=== PATIENT | male | born 1960 | race Caucasian/White ===

== ENCOUNTER 2024-03-01 15:54 | Inpatient (IN) | payer MEDICARE ==
[~2024-03-01] VITALS: Ht 185.4 cm; Wt 115.2 kg
[2024-03-01 18:40] VITALS: BP 140/90; PULSE 75; RESP 19; TEMP 97.9; O2SAT 96
[2024-03-01] MEDS ORDERED: DEXTROSE 50%-WATER 25 GM/50 ML SYRINGE IVP PRN (19:00)
[2024-03-01] MEDS ORDERED: LACTULOSE 20 GM/30 ML SOLUTION UDCUP PO PRN (19:00)
[2024-03-01] MEDS ORDERED: ACETAMINOPHEN 325 MG TABLET PO PRN (19:00)
[2024-03-01] MEDS: SENNOSIDES 8.6 MG TABLET PO SCH (21:00)
[2024-03-01 21:30] VITALS: BP 127/92; PULSE 74; RESP 18; TEMP 97.5; O2SAT 94
[2024-03-01] MEDS: ATORVASTATIN CALCIUM 10 MG TABLET PO SCH (21:40)
[2024-03-01] MEDS: 0.9% SODIUM CHLORIDE 10 ML SYRINGE IVP SCH (21:40)
[2024-03-01] MEDS: APIXABAN 2.5 MG TABLET PO SCH (21:40)
[2024-03-01] MEDS: INSULIN GLARGINE,HUM.REC.ANLOG 100 UNITS/ML SQ SCH (21:44)
[2024-03-01] MEDS: INSULIN LISPRO 100 UNITS/ML SQ PRN (21:45)
[2024-03-01] MEDS: MELATONIN 5 MG TABLET PO PRN (21:48)
[2024-03-01] MEDS: OxyCODONE HCL 5 MG IR TABLET PO PRN (21:48)
[2024-03-01] MEDS: AMPICILLIN SODIUM/SULBACTAM NA 3 GM in SODIUM CHLORIDE 0.9% 100 ML IV SCH (23:57)
[2024-03-02 02:26] LABS: GLUCOMETER DEV NAME(LOC) 2WR.2B; GLUCOSE,POINT OF CARE 146 MG/DL (70-110)
[2024-03-02 06:55] LABS: GLUCOMETER DEV NAME(LOC) 2WR.1D; GLUCOSE,POINT OF CARE 170 MG/DL (70-110)
[2024-03-02 07:50] VITALS: BP 132/76; PULSE 73; RESP 19; TEMP 98.2; O2SAT 95
[2024-03-02] MEDS: METOPROLOL SUCCINATE 25 MG ER TABLET PO SCH (08:07)
[2024-03-02] MEDS: ASPIRIN 81 MG CHEWABLE TABLET PO SCH (08:08)
[2024-03-02 08:10] LABS: BASOPHILS % (AUTO) 1.3 % (0.0-2.0); EOSINOPHILS % (AUTO) 5.1 % (1.0-6.0); HEMATOCRIT 33.6 % (41-53); HEMOGLOBIN 11.3 g/dL (13.5-17.5); LYMPHOCYTES # (AUTO) 1.4 K/uL (1.0-4.8); LYMPHOCYTES % (AUTO) 32.8 % (22.0-44.0); MEAN CORPUSCULAR HEMOGLOBIN 33.8 pg (26.0-34.0); MEAN CORPUSCULAR HGB CONC 33.6 G/dL (31.0-37.0); MEAN CORPUSCULAR VOLUME 101 fL (80-100); MONOCYTES # (AUTO) 0.4 K/uL (0.1-1.0); MONOCYTES % (AUTO) 8.7 % (2.0-9.0); NEUTROPHILS # (AUTO) 2.3 K/uL (1.8-7.7); NEUTROPHILS % (AUTO) 52.1 % (40.0-70.0); PLATELET COUNT (AUTO) 180 K/uL (150-450); RED BLOOD CELL COUNT(AUTO) 3.34 MIL/uL (4.50-5.90); RED CELL DISTRIBUTION WIDTH 13.6 % (11.5-14.5); WHITE BLOOD COUNT (AUTO) 4.3 K/uL (4.5-11.0)
[2024-03-02] MEDS: POLYETHYLENE GLYCOL 3350 17 GM PACKET PO SCH (08:10)
[2024-03-02 08:21] LABS: ALBUMIN 2.8 g/dL (3.4-5.0); BILIRUBIN,TOTAL 0.3 mg/dL (0.1-1.0); CALCIUM, TOTAL 9.1 mg/dL (8.8-10.5); CREATININE 1.71 mg/dL (0.60-1.30); POTASSIUM 4.4 mmol/L (3.5-5.1); TOTAL PROTEIN, SERUM 6.9 g/dL (6.4-8.2)
[2024-03-02 08:46] VITALS: O2SAT 95
[2024-03-02 12:05] LABS: GLUCOMETER DEV NAME(LOC) 2WR.1D; GLUCOSE,POINT OF CARE 217 MG/DL (70-110)
[2024-03-02 19:06] LABS: GLUCOMETER DEV NAME(LOC) 2WR.2B; GLUCOSE,POINT OF CARE 187 MG/DL (70-110)
[2024-03-02 19:45] VITALS: BP 127/59; PULSE 73; RESP 18; TEMP 98.3; O2SAT 95
[2024-03-02 20:00] VITALS: O2SAT 95
[2024-03-02] MEDS: CHLORHEXIDINE GLUCONATE 4% 118 ML TOPICAL LIQUID TP SCH (21:03)
[2024-03-02] MEDS: ATORVASTATIN CALCIUM 20 MG TABLET PO SCH (21:04)
[2024-03-02] MEDS: ETHYL ALCOHOL 62% ANTISEPTIC NASAL SANITIZER 0.6 ML AMPUL NASAL SCH (21:22)
[2024-03-02 21:36] LABS: GLUCOMETER DEV NAME(LOC) 2WR.2B; GLUCOSE,POINT OF CARE 175 MG/DL (70-110)
[2024-03-03 07:05] LABS: GLUCOMETER DEV NAME(LOC) 2WR.1D; GLUCOSE,POINT OF CARE 152 MG/DL (70-110)
[2024-03-03 08:05] VITALS: BP 100/62; PULSE 74; RESP 18; TEMP 98.2; O2SAT 98
[2024-03-03] MEDS: PANTOPRAZOLE SODIUM 40 MG DR TABLET PO SCH (08:21)
[2024-03-03 12:15] LABS: GLUCOMETER DEV NAME(LOC) 2WR.1D; GLUCOSE,POINT OF CARE 181 MG/DL (70-110)
[2024-03-03 15:30] VITALS: BP 124/64; PULSE 78; RESP 18; TEMP 98.4; O2SAT 98
[2024-03-03 17:41] LABS: GLUCOMETER DEV NAME(LOC) 2WR.2B; GLUCOSE,POINT OF CARE 147 MG/DL (70-110)
[2024-03-03 20:32] VITALS: BP 137/88; PULSE 76; RESP 18; TEMP 97.7; O2SAT 95
[2024-03-03 20:46] LABS: GLUCOMETER DEV NAME(LOC) 2WR.1D; GLUCOSE,POINT OF CARE 197 MG/DL (70-110)
[2024-03-03 22:05] VITALS: O2SAT 95
[2024-03-04 08:04] VITALS: BP 134/78; PULSE 69; RESP 18; TEMP 98.2; O2SAT 96
[2024-03-04 08:06] LABS: GLUCOMETER DEV NAME(LOC) 2WR.2B; GLUCOSE,POINT OF CARE 141 MG/DL (70-110)
[2024-03-04 13:36] LABS: GLUCOMETER DEV NAME(LOC) 2WR.2B; GLUCOSE,POINT OF CARE 166 MG/DL (70-110)
[2024-03-04 17:30] LABS: GLUCOMETER DEV NAME(LOC) 2WR.2B; GLUCOSE,POINT OF CARE 146 MG/DL (70-110)
[2024-03-04 19:52] VITALS: BP 156/91; PULSE 78; RESP 18; TEMP 97.9; O2SAT 96
[2024-03-04 23:40] VITALS: O2SAT 96
[2024-03-05 00:13] VITALS: BP 142/65; PULSE 67
[2024-03-05 00:26] LABS: GLUCOMETER DEV NAME(LOC) 2WR.1D; GLUCOSE,POINT OF CARE 203 MG/DL (70-110)
[2024-03-05 06:50] LABS: GLUCOMETER DEV NAME(LOC) 2WR.2B; GLUCOSE,POINT OF CARE 133 MG/DL (70-110)
[2024-03-05 07:11] LABS: BASOPHILS % (AUTO) 0.5 % (0.0-2.0); HEMATOCRIT 35.8 % (41-53); LYMPHOCYTES # (AUTO) 1.7 K/uL (1.0-4.8); LYMPHOCYTES % (AUTO) 33.4 % (22.0-44.0); MEAN CORPUSCULAR HEMOGLOBIN 33.4 pg (26.0-34.0); MEAN CORPUSCULAR HGB CONC 33.6 G/dL (31.0-37.0); MEAN CORPUSCULAR VOLUME 100 fL (80-100); MONOCYTES # (AUTO) 0.4 K/uL (0.1-1.0); MONOCYTES % (AUTO) 8.1 % (2.0-9.0); NEUTROPHILS # (AUTO) 2.7 K/uL (1.8-7.7); PLATELET COUNT (AUTO) 153 K/uL (150-450); RED CELL DISTRIBUTION WIDTH 13.4 % (11.5-14.5); WHITE BLOOD COUNT (AUTO) 5.1 K/uL (4.5-11.0)
[2024-03-05 07:30] VITALS: BP 147/89; PULSE 67; RESP 18; TEMP 97.8; O2SAT 95
[2024-03-05 07:46] LABS: CALCIUM, TOTAL 9.3 mg/dL (8.8-10.5); CREATININE 1.88 mg/dL (0.60-1.30); POTASSIUM 4.1 mmol/L (3.5-5.1)
[2024-03-05 08:50] VITALS: BP 131/67; PULSE 73; O2SAT 95
[2024-03-05 11:30] LABS: GLUCOMETER DEV NAME(LOC) 2WR.1D; GLUCOSE,POINT OF CARE 196 MG/DL (70-110)
[2024-03-05] MEDS: SODIUM CHLORIDE 0.9% 1,000 ML IV ONE (15:47)
[2024-03-05 17:45] LABS: GLUCOMETER DEV NAME(LOC) 2WR.1D; GLUCOSE,POINT OF CARE 176 MG/DL (70-110)
[2024-03-05 20:27] VITALS: BP 131/83; PULSE 67; RESP 18; TEMP 97.9; O2SAT 99
[2024-03-05 20:46] LABS: GLUCOMETER DEV NAME(LOC) 2WR.1D; GLUCOSE,POINT OF CARE 177 MG/DL (70-110)
[2024-03-05 22:13] VITALS: O2SAT 99
[2024-03-06 06:41] LABS: GLUCOMETER DEV NAME(LOC) 2WR.1D; GLUCOSE,POINT OF CARE 147 MG/DL (70-110)
[2024-03-06 08:00] VITALS: BP 118/63; PULSE 71; RESP 17; TEMP 98.1; O2SAT 98
[2024-03-06] MEDS: EMPAGLIFLOZIN 25 MG TABLET PO SCH (08:20)
[2024-03-06 12:47] LABS: GLUCOMETER DEV NAME(LOC) 2WR.1D; GLUCOSE,POINT OF CARE 216 MG/DL (70-110)
[2024-03-06 18:51] LABS: GLUCOMETER DEV NAME(LOC) 2WR.1D; GLUCOSE,POINT OF CARE 119 MG/DL (70-110)
[2024-03-06 20:00] VITALS: BP 133/72; PULSE 69; RESP 18; TEMP 98.7; O2SAT 99
[2024-03-06 21:01] LABS: GLUCOMETER DEV NAME(LOC) 2WR.2B; GLUCOSE,POINT OF CARE 161 MG/DL (70-110)
[2024-03-06 23:28] VITALS: O2SAT 99
[2024-03-07 06:56] LABS: GLUCOMETER DEV NAME(LOC) 2WR.2B; GLUCOSE,POINT OF CARE 86 MG/DL (70-110)
[2024-03-07 08:15] VITALS: BP 136/67; PULSE 66; RESP 18; TEMP 97.8; O2SAT 95
[2024-03-07] MEDS ORDERED: SODIUM CHLORIDE 0.9% 250 ML IV ONE (11:20)
[2024-03-07 12:26] LABS: GLUCOMETER DEV NAME(LOC) 2WR.2B; GLUCOSE,POINT OF CARE 124 MG/DL (70-110)
[2024-03-07 17:06] LABS: GLUCOMETER DEV NAME(LOC) 2WR.2B; GLUCOSE,POINT OF CARE 119 MG/DL (70-110)
[2024-03-07 20:00] VITALS: BP 149/65; PULSE 70; RESP 18; TEMP 98.3; O2SAT 96
[2024-03-07 20:05] VITALS: O2SAT 96
[2024-03-07 20:41] LABS: GLUCOMETER DEV NAME(LOC) 2WR.1D; GLUCOSE,POINT OF CARE 144 MG/DL (70-110)
[2024-03-08 06:40] LABS: GLUCOMETER DEV NAME(LOC) 2WR.2B; GLUCOSE,POINT OF CARE 102 MG/DL (70-110)
[2024-03-08 08:05] VITALS: BP 140/70; PULSE 68; RESP 18; TEMP 98.2; O2SAT 98
[2024-03-08 10:18] VITALS: O2SAT 98
[2024-03-08 12:05] LABS: GLUCOMETER DEV NAME(LOC) 2WR.1D; GLUCOSE,POINT OF CARE 145 MG/DL (70-110)
[2024-03-08 17:16] LABS: GLUCOMETER DEV NAME(LOC) 2WR.1D; GLUCOSE,POINT OF CARE 113 MG/DL (70-110)
[2024-03-08 20:10] VITALS: BP 142/58; PULSE 70; RESP 19; TEMP 98.2; O2SAT 98
[2024-03-08 21:30] LABS: GLUCOMETER DEV NAME(LOC) 2WR.1D; GLUCOSE,POINT OF CARE 174 MG/DL (70-110)
[2024-03-08 22:14] VITALS: O2SAT 98
[2024-03-09 07:00] LABS: GLUCOMETER DEV NAME(LOC) 2WR.2B; GLUCOSE,POINT OF CARE 109 MG/DL (70-110)
[2024-03-09 08:00] VITALS: BP 129/76; PULSE 67; RESP 18; TEMP 98.1; O2SAT 96
[2024-03-09 14:01] LABS: GLUCOMETER DEV NAME(LOC) 2WR.2B; GLUCOSE,POINT OF CARE 158 MG/DL (70-110)
[2024-03-09] MEDS ORDERED: APIX2.5T PO (15:55)
[2024-03-09] MEDS ORDERED: PANT-31 PO (16:03)
[2024-03-09] MEDS ORDERED: ATOR20TA PO (16:03)
[2024-03-09] MEDS ORDERED: EMPA25TA3 PO (16:03)
[2024-03-09] MEDS ORDERED: INSLAN SQ (16:03)
[2024-03-09] MEDS ORDERED: METO25XL PO (16:03)
[2024-03-09] MEDS ORDERED: INSU100V SQ (16:03)
[2024-03-09] MEDS ORDERED: SENN-376 PO (16:03)
[2024-03-09] MEDS ORDERED: MELA5TAB40 PO (16:03)
[2024-03-09] MEDS ORDERED: ASPI-1450 PO (16:03)
[2024-03-09 17:11] LABS: GLUCOMETER DEV NAME(LOC) 2WR.2B; GLUCOSE,POINT OF CARE 155 MG/DL (70-110)
[2024-03-09 20:00] VITALS: BP 131/87; PULSE 64; RESP 18; TEMP 98.6; O2SAT 99
[2024-03-09 22:36] VITALS: O2SAT 99
[2024-03-09 23:16] LABS: GLUCOMETER DEV NAME(LOC) 2WR.2B; GLUCOSE,POINT OF CARE 165 MG/DL (70-110)
[2024-03-10 06:51] LABS: GLUCOMETER DEV NAME(LOC) 2WR.2B; GLUCOSE,POINT OF CARE 105 MG/DL (70-110)
[2024-03-10 07:32] LABS: CALCIUM, TOTAL 9.5 mg/dL (8.8-10.5); CREATININE 1.81 mg/dL (0.60-1.30); POTASSIUM 3.9 mmol/L (3.5-5.1)
[2024-03-10 08:01] LABS: BASOPHILS % (AUTO) 0.3 % (0.0-2.0); EOSINOPHILS % (AUTO) 5.4 % (1.0-6.0); HEMATOCRIT 39.2 % (41-53); LYMPHOCYTES # (AUTO) 2.3 K/uL (1.0-4.8); LYMPHOCYTES % (AUTO) 44.2 % (22.0-44.0); MEAN CORPUSCULAR HEMOGLOBIN 32.7 pg (26.0-34.0); MEAN CORPUSCULAR HGB CONC 33.2 G/dL (31.0-37.0); MEAN CORPUSCULAR VOLUME 99 fL (80-100); MONOCYTES # (AUTO) 0.5 K/uL (0.1-1.0); MONOCYTES % (AUTO) 9.9 % (2.0-9.0); NEUTROPHILS # (AUTO) 2.1 K/uL (1.8-7.7); NEUTROPHILS % (AUTO) 40.2 % (40.0-70.0); PLATELET COUNT (AUTO) 124 K/uL (150-450); RED BLOOD CELL COUNT(AUTO) 3.98 MIL/uL (4.50-5.90); RED CELL DISTRIBUTION WIDTH 12.9 % (11.5-14.5); WHITE BLOOD COUNT (AUTO) 5.1 K/uL (4.5-11.0)
[2024-03-10 08:05] VITALS: BP 123/76; PULSE 61; RESP 18; TEMP 97.7; O2SAT 98
[2024-03-10 14:40] LABS: GLUCOMETER DEV NAME(LOC) 2WR.1D; GLUCOSE,POINT OF CARE 153 MG/DL (70-110)
[2024-03-10 18:36] LABS: GLUCOMETER DEV NAME(LOC) 2WR.2B; GLUCOSE,POINT OF CARE 171 MG/DL (70-110)
[2024-03-10 20:00] VITALS: BP 128/81; PULSE 66; RESP 19; TEMP 98.6; O2SAT 98
[2024-03-10 21:06] LABS: GLUCOMETER DEV NAME(LOC) 2WR.1D; GLUCOSE,POINT OF CARE 177 MG/DL (70-110)
[2024-03-11 02:35] VITALS: O2SAT 98
[2024-03-11 07:16] LABS: GLUCOMETER DEV NAME(LOC) 2WR.1D; GLUCOSE,POINT OF CARE 148 MG/DL (70-110)
[2024-03-11] MEDS ORDERED: ATEN-72 PO (07:26)
[2024-03-11 08:05] VITALS: BP 128/57; PULSE 63; RESP 18; TEMP 97.1; O2SAT 96
[2024-03-11] MEDS: ATENOLOL 50 MG TABLET PO SCH (08:30)
== END 2024-03-11 13:36 | disposition home health service (06) | DRG 56 ==
LOC: 2WR 18:25 → 4E 03-11 11:08
PROVIDERS: ADMIT Physical Medicine & Rehabilitation; ATTEND Physical Medicine & Rehabilitation
DX: G81.91 Hemiplegia, unspecified affecting right dominant side (principal); I63.89 Other cerebral infarction; E46 Unspecified protein-calorie malnutrition; N17.9 Acute kidney failure, unspecified; I82.409 Acute embolism and thrombosis of unspecified deep veins of unspecified lower extremity; I65.29 Occlusion and stenosis of unspecified carotid artery; I12.9 Hypertensive chronic kidney disease with stage 1 through stage 4 chronic kidney disease, or unspecified chronic kidney disease; E11.22 Type 2 diabetes mellitus with diabetic chronic kidney disease; N18.9 Chronic kidney disease, unspecified; D64.9 Anemia, unspecified; Z74.09 Other reduced mobility; R47.1 Dysarthria and anarthria; R13.10 Dysphagia, unspecified; R26.81 Unsteadiness on feet; R41.89 Other symptoms and signs involving cognitive functions and awareness; I95.9 Hypotension, unspecified; Z79.4 Long term (current) use of insulin; Z83.3 Family history of diabetes mellitus; Z68.33 Body mass index [BMI] 33.0-33.9, adult; Z90.49 Acquired absence of other specified parts of digestive tract
CPT/HCPCS: 80048; 80053; 80061; 82962; 85025; 85651; 86140; 87081; 92507; 92523; 97110; 97112; 97116; 97162; 97167; 97530; 97535; 99366; J0295; J1815; J7030; J7050; Q9967